=== PATIENT | female | born 2000 | race American Indian/Alaskan Native ===

== ENCOUNTER 2019-12-20 09:39 | Emergency (ER) | payer OTHER ==
[2019-12-20 11:24] VITALS: BP 117/62
[2019-12-20 12:11] LABS: Bacteria,Urine 1+ /HPF (Negative); Bilirubin,Urine NEG (Negative); Blood,Urine LG (Negative); Color,Urine Amber (Yellow); Mucus,Urine 2+ /HPF; Urobilinogen,Urine < 2.0 mg/dL (<2.0)
[2019-12-20 12:12] LABS: HCG Qualitative,Urine Positive (Negative)
--- NOTE | 2019-12-20 14:19 | Emergency Department Report ---
ED Female HPI - General Chief complaint: Vaginal Bleeding Stated complaint: PREG/POSSIBLE UTI Time Seen by Provider: 12/20/19 13:56 Source: patient Mode of arrival: Ambulatory Limitations: No Limitations - History of Present Illness Initial comments: This is a 19-year-old -[place] female who presents to the emergency room with hematuria that started yesterday. Patient states she went to the urgent care and had a confirmed . She was told to follow-up with her [facility] [facility] [employer]PER[facility] because she possibly have a urinary tract infection. Patient states today she noticed increased vaginal bleeding which required her to wear panty liner. Patient states she called an [facility]PER[facility] who told her she may workbook out until next week and she will need to follow up with the emergency room. She also reports urinary frequency. Her last menstrual period was 11/02/2019, 1. She denies dysuria, nausea, vomiting, abdominal pain, back pain, fever, or chills. MD Complaint: vaginal bleeding Onset/Timin -: days(s) Severity: mild Severity scale (0 -10): 0 Consistency: constant Improves with: none Worsens with: none Are you Now?: Yes Last Menstrual Period: 11/02/19 EDC: 08/08/20 Associated Symptoms: vaginal bleeding, hematuria. denies: vaginal discharge, abdominal pain, nausea/vomiting, fever/chills, headaches, dysuria - Related Data Sexually active: Yes : 1 Para: 0 A: 0 Previous Rx's Medication Instructions Recorded Last Taken Type 21/Iron Fu/Folic Acid 1 each PO DAILY #30 tablet 12/20/19 Unknown Rx [ Complete Caplet] Allergies Allergy/AdvReac Type Severity Reaction Status Date / Time No Known Allergies Allergy Unverified 12/20/19 11:13 ED Review of Systems ROS: Stated complaint: PREG/POSSIBLE UTI Other details as noted in HPI Constitutional: denies: chills, fever Respiratory: denies: cough, shortness of breath, wheezing Cardiovascular: denies: chest pain, palpitations Gastrointestinal: denies: abdominal pain, nausea, diarrhea Genitourinary: hematuria. denies: urgency, dysuria, discharge Musculoskeletal: denies: back pain, joint swelling, arthralgia Skin: denies: rash, lesions Neurological: denies: headache, weakness, paresthesias Psychiatric: denies: anxiety, depression ED Past Medical Hx - Past Medical History Previous Medical History?: No - Surgical History Past Surgical History?: No - Social History Smoking Status: Never Smoker Substance Use Type: None - Medications Home Medications: Home Medications Medication Instructions Recorded Confirmed Last Taken Type 21/Iron Fu/Folic Acid 1 each PO DAILY #30 tablet 12/20/19 Unknown Rx [ Complete Caplet] ED Physical Exam - General Limitations: No Limitations General appearance: alert, in no apparent distress - Respiratory Respiratory exam: Present: normal lung sounds bilaterally. Absent: respiratory distress - Cardiovascular Cardiovascular Exam: Present: regular rate, normal rhythm. Absent: systolic murmur, diastolic murmur, rubs, gallop - GI/Abdominal GI/Abdominal exam: Present: soft, normal bowel sounds. Absent: distended, tenderness, guarding, rebound, rigid - Back Exam Back exam: Absent: CVA tenderness (R), CVA tenderness (L) - Neurological Exam Neurological exam: Present: alert, oriented X3, normal gait - Psychiatric Psychiatric exam: Present: normal affect, normal mood - Skin Skin exam: Present: warm, dry, intact, normal color. Absent: rash ED Course Vital Signs 12/20/19 11:16 Temperature 99.0 F Pulse Rate 111 H Respiratory 16 Rate Blood Pressure 117/62 O2 Sat by Pulse 100 Oximetry ED Medical Decision Making - Lab Data Lab Results 12/20/19 Range/Units 11:42 Urine Color Thuy (Yellow) Urine Turbidity Cloudy (Clear) Urine pH 7.0 (5.0-7.0) Ur Specific [place] 1.025 (1.003-1.030) Urine Protein 30 mg/dl (Negative) mg/dL Urine Glucose (UA) Neg (Negative) mg/dL Urine Ketones Neg (Negative) mg/dL Urine Blood Lg (Negative) Urine Nitrite Neg (Negative) Urine Bilirubin Neg (Negative) Urine Urobilinogen < 2.0 (<2.0) mg/dL Ur Leukocyte Esterase Mod (Negative) Urine WBC (Auto) 35.0 H (0.0-6.0) /HPF Urine RBC (Auto) 6.0 (0.0-6.0) /HPF U Epithel Cells (Auto) 8.0 (0-13.0) /HPF Urine Bacteria (Auto) 1+ (Negative) /HPF Urine Mucus 2+ /HPF Urine HCG, Qual Positive A (Negative) - Radiology Data Radiology results: report reviewed Pelvic Ultrasound HISTORY: + preg, vaginal bleeding. TECHNIQUE: Grayscale and color Doppler imaging performed. COMPARISON: None FINDINGS: Transabdominal and endovaginal imaging was performed. Uterus measures 7.7 x 5.1 x 6.8 cm with an intrauterine gestational sac containing a pole and a yolk sac. pole crown-rump length is 5.2 mm which corresponds with an EGA of 6 weeks and 2 days. This correlates with a delivery date of 08/12/2020. Heart rate is 113 bpm. There is a moderate size subchorionic hemorrhage measuring 2.7 x 0.7 x 1.8 cm. No significant pelvic free fluid both ovaries appear unremarkable. IMPRESSION: 1. Single viable intrauterine gestation as above. 2. Moderate-sized subchorionic hemorrhage. - Medical Decision Making This is a 19 y.o. female presents with hematuria and dysuria during . Vitals are stable inpatient in no acute distress. Obtained labs and OB Ultrasound. test positive, large amount of blood in urine. OB ultrasound 1. Single viable intrauterine gestation as above. 2. Moderate-sized subchorionic hemorrhage. Based on History, Exam, and ED Workup patients presentation not consistent with ectopic , molar , life- threatening coagulopathy, trauma, serious bacterial infection, central process or other emergency. Abdomen nontender on physical exam. Start vitamins. Bed rest until follow-up with [facility] [facility]. Referrals given for [facility] continued care. Discharge home with return precautions and instruction for prompt OBGYN follow up. Critical care attestation.: If time is entered above; I have spent that time in minutes in the direct care of this critically ill patient, excluding procedure time. ED Disposition Clinical Impression: Vaginal bleeding during , Threatened in early Hematuria Qualifiers: Hematuria type: benign essential microscopic Qualified Code(s): R31.1 - Benign essential microscopic hematuria Subchorionic hemorrhage in first trimester Qualifiers: Fetus number: single or unspecified fetus Qualified Code(s): O41.8X10 - Other specified disorders of amniotic fluid and membranes, first trimester, not applicable or unspecified Disposition: DC-01 TO HOME OR SELFCARE Is pt being admited?: No Condition: Stable Instructions: Threatened Miscarriage (ED) Additional Instructions: Follow up with an [facility]PER[facility]OR. Are taking vitamins daily. Return to the emergency room if worsening vaginal bleeding, abdominal pain, and or back pain. Prescriptions: 21/Iron Fu/Folic Acid [ Complete Caplet] 1 each PO DAILY #30 tablet Referrals: [facility] [Provider Group] - 3-5 Days [facility] [Provider Group] - 3-5 Days [facility] [Provider Group] - 3-5 Days Forms: Work/School Release Form(ED) Time of Disposition: 16:13
--- NOTE | 2019-12-20 15:38 | Ultrasound Report ---
Pelvic Ultrasound HISTORY: + preg, vaginal bleeding. TECHNIQUE: Grayscale and color Doppler imaging performed. COMPARISON: None FINDINGS: Transabdominal and endovaginal imaging was performed. Uterus measures 7.7 x 5.1 x 6.8 cm with an intrauterine gestational sac containing a pole and a yolk sac. pole crown-rump length is 5.2 mm which corresponds with an EGA of 6 weeks and 2 days . This correlates with a delivery date of 08/12/2020. Heart rate is 113 bpm. There is a moderate size subchorionic hemorrhage measuring 2.7 x 0.7 x 1.8 cm. No significant pelvic free fluid both ovaries a ppear unremarkable. IMPRESSION: 1. Single viable intrauterine gestation as above. 2. Moderate-sized subchorionic hemorrhage. Signer Name: Jay Guan MD Signed: 12/20/2019 3:34 PM Workstation Name: [id number]
== END 2019-12-20 16:29 | disposition home or self-care (01) ==
LOC: ED 09:39
DX: O20.0 Threatened abortion (principal); O41.8X10 Other specified disorders of amniotic fluid and membranes, first trimester, not applicable or unspecified; O20.8 Other hemorrhage in early pregnancy; Z79.899 Other long term (current) drug therapy; Z3A.01 Less than 8 weeks gestation of pregnancy
CPT/HCPCS: 36415; 76801; 76817; 81001; 81025; 84702; 86850; 86900; 86901; 87086